=== PATIENT | male | born 1960 | race Caucasian/White ===

== ENCOUNTER 2018-10-02 15:45 | Inpatient (IN) | payer BC ==
[~2018-10-02] VITALS: Ht 182.9 cm; Wt 102.1 kg
[2018-10-02 15:46] VITALS: Ht 182.9 cm; Wt 102.1 kg
--- NOTE | 2018-10-02 16:00 | NUR ---
RECTAL EXAM DONE BY DR VILLARREAL
--- NOTE | 2018-10-02 16:33 | NUR ---
AWAKE ALERT MOVED FROM HALLWAY TO BED 15 STATED 7 HOURS AGO INSERTED A GLASS BALL IN HIS ANUS,TRIED TO GET IT OUT COULDNOT IN SEVERE PAIN
--- NOTE | 2018-10-02 16:36 | NUR ---
MEDICATED ORDERD FOR ANAL PAIN,
[2018-10-02 16:52] LABS: microscopic required? YES; urine erythrocyte TRACE (NEGATIVE)
[2018-10-02 16:57] LABS: BASOPHIL % 0.2 % (0-2); PLATELET COUNT 243 x10^3mcL (130-400); RED CELL DISTRIBUTION WIDTH 13.5 % (11.5-14.5)
[2018-10-02 16:58] LABS: CALCIUM 8.4 mg/dL (8.5-10.1); CARBON DIOXIDE 23.3 mmol/L (21-32); CHLORIDE SERUM 102 mmol/L (98-107); CREATININE SERUM 1.1 mg/dL (0.7-1.3); GFR1 > 60 mL/min; GLUCOSE SERUM 141 mg/dL (74-106); LIPASE 109 IU/L (73-393); POTASSIUM SERUM 3.4 mmol/L (3.5-5.1); SODIUM SERUM 139 mmol/L (136-145)
--- NOTE | 2018-10-02 17:16 | NUR ---
STATES FEELS BETTR, BUT STILL IN PAIN, RESTLESS IN GURNEY
--- NOTE | 2018-10-02 17:53 | NUR ---
RESTLESS IN BED AND C/O SEVERE ANAL PAIN,MEDICATED WITH FENTANYL
[2018-10-02 18:13] LABS: AMPHETAMINE QUAL UR POSITIVE (See below)
[2018-10-02] MEDS ORDERED: LOSARTAN POTAS100 M1 PO (18:30)
[2018-10-02] MEDS ORDERED: HCTZ (18:30)
--- NOTE | 2018-10-02 19:00 | NUR ---
[facility] ACCOM[facility]AN[facility] BY TRANSPORTER. PT A/A/O X 4, ANXIOUS AND RESTLESS BUT COOPERATIVE TO CARE AT THIS TIME. PT AMBULATORY, ABLE TO WALK WITHOUT GAIT OR BALANCE IMPAIRMENT FROM ERNEY TO BED. HR (101) AND RR (22) ELEVATED 2/2 CONSTANT PULLING PAIN 9/10 IN HIS RECTUM 2/2 FOREIGN OBJECT LODGED DEEP INSIDE (GLASS BALL, PER PT, W/C HE USED TO ANALLY PLEASE HIMSELF); UNABLE TO DIGITALLY INSPECT OBJECT; DENIES CHEST PAIN OR DISCOMFORT, NO ACUTE RESPIRATORY DISTRESS NOTED. ABD SOFT, ROUND, TENDERNESS UPON PALPATION AND TYMPANY UPON PERCUSSION X 4 QUADS, LAST BM 10/01/18, HARD. IV SITE RFA 20G, CDI. ORIENTED PT TO ROOM, BED CONTROLS, CALL LIGHT SYSTEM. SIDE RAILS UP X 2, BED IN LOW POSITION. WILL ENDORSE TO YANNI ULLOA.
--- NOTE | 2018-10-02 19:13 | NUR ---
REPORT GIVEN TO ISABELLA LIAO,
--- NOTE | 2018-10-02 20:43 | NUR ---
C/O RECTAL PAIN AT SCALE OF 8/10 PER PATIENT, MEDICATED WITH MORPHINE 2MG IVP PRESCRIBED. WILL CONTINUE TO MONITOR.
[2018-10-02 20:55] VITALS: BP 145/88
[2018-10-02 21:02] VITALS: BP 191/98
--- NOTE | 2018-10-02 23:28 | NUR ---
PATIENT SCREAMING C/O RECTAL PAIN AT SCALE OF 10/10 PER PATIENT. MORPHINE 4MG IVP GIVEN PRESCRIBED. WILL CONTINUE TO MONITOR.
[2018-10-03 00:33] VITALS: BP 159/84
--- NOTE | 2018-10-03 04:15 | NUR ---
PATIENT STILL AWAKE C/O RECTAL PAIN 10/10 PER PATIENT. MORPHINE 4MG IVP GIVEN PRESCRIBED. WILL CONTINUE TO MONITOR.
--- NOTE | 2018-10-03 05:20 | NUR ---
AWAKE MOST OF THE TIME C/O RECTAL PAIN, MEDICATED X3 WITH MORPHINE 4MG IVP PRESCRIBED. KEPT ON NPO. ALL NEEDS ATTENDED.
[2018-10-03 06:01] VITALS: BP 177/91
--- NOTE | 2018-10-03 07:00 | NUR ---
RECEIVED BEDSIDE REPORT FROM TECHNICAL TRAINING INSTRUCTOR NURSE AT THIS TIME. PATIENT RESTING IN BED TURNING SIDE TO SIDE. BREATHING SLIGHTLY ELEVATED, BUT NO RESPIRATORY DISTRESS NOTED. PATIENT DENIES CHEST PAIN AT THIS TIME. SKIN IS INTACT. PATIENT C/O RECTAL PAIN DUE TO GLASS BALL HE SELF PLACED IN RECTUM. WILL MEDICATE INDICATED FOR COMFORT. IV PATENT AND INTACT AND SALINE LOCKED. ALL QUESTIONS AND CONCERNS ADDRESSED. ALL NEEDS ATTENDED TO. WILL CONTINUE TO MONITOR
[2018-10-03 08:49] LABS: CALCIUM 8.9 mg/dL (8.5-10.1); CARBON DIOXIDE 22.6 mmol/L (21-32); CHLORIDE SERUM 102 mmol/L (98-107); CREATININE SERUM 1.1 mg/dL (0.7-1.3); GFR1 > 60 mL/min; GLUCOSE SERUM 147 mg/dL (74-106); POTASSIUM SERUM 3.3 mmol/L (3.5-5.1); SODIUM SERUM 138 mmol/L (136-145)
--- NOTE | 2018-10-03 08:53 | NUR ---
PATIENT DOWN FOR PROCEDURE AT THIS TIME
[2018-10-03 09:17] LABS: PLATELET COUNT 221 x10^3mcL (130-400); RED CELL DISTRIBUTION WIDTH 13.7 % (11.5-14.5)
[2018-10-03 09:26] VITALS: BP 163/80
--- NOTE | 2018-10-03 10:15 | NUR ---
REPORTS TO DR ARRIAGA REGARDING PATIENT WBC OF 22.9 AND POTASSIUM OF 3.3 AT THIS TIME. WILL PROCEED ORDERED. WILL CONTINUE TO MONITOR
[2018-10-03 12:13] LABS: BAND NEUTROPHIL 2 % (0-10); BASOPHIL 0 % (0-2); MONOCYTE 2 % (0-7); SEGMENTED NEUTROPHILS 91 % (37-75)
[2018-10-03 12:14] LABS: rbc morphology (normal/abnorm) ABNORMAL (NORMAL)
[2018-10-03 12:15] LABS: PLATELET MORPHOLOGY PLATELETS DECREASED
--- NOTE | 2018-10-03 12:48 | NUR ---
RECEIVED PATIENT BACK FROM PROCEDURE AT THIS TIME. PATIENT ABLE TO AMBULATE FROM [facility] TO BED. BLOOD NOTED TO [facility] BED AND PATIENT GOWN. PATIENT GIVEN CLEAN GOWN AND CLEANED UP. PAD AND MESH PANTIES IN PLACE. VITAL SIGNS STABLE. PATIENT SITTING UP IN BED EATING LUNCH AT THIS TIME. TOLERATING DIET WELL. ALL QUESTIONS AND CONCERNS ADDRESSED. ALL NEEDS ATTENDED TO. WILL CONTINUE TO MONITOR
[2018-10-03 12:52] VITALS: BP 116/76
[2018-10-03 13:25] VITALS: BP 116/76
--- NOTE | 2018-10-03 15:11 | NUR ---
SPOKE TO DR PARNELL REGARDING PATIENT WBC OF 22.9. DR PARNELL INFORMED PATIENT GOT ONE DOSE OF ANTIBIOTIC IN OR. PER DR PARNELL, OKAY TO DISCHARGE PATIENT AT THIS TIME. ALL QUESTIONS AND CONCERNS ADDRESSED. ALL NEEDS ATTENDED TO.
--- NOTE | 2018-10-03 15:28 | NUR ---
PATIENT STABLE TO BE DISCHARGED TO HOME. DISCHARGE INSTRUCTIONS GIVEN WELL EDUCATION. INSTRUCTED PATIENT ABOUT FOLLOW UP APPOINTMENT WITH PCP. PATIENT VERBALIZED UNDERSTANDING. IV REMOVED WITH CATH INTACT. ID BANDS REMOVED. ALL BELONGINGS WITH PATIENT. ALL QUESTIONS AND CONCERNS ADDRESSED. ALL NEEDS ATTENDED TO. AWAITING TO FIRE SERVICES PLUMBER PATIENT. TO BE ESCORTED DOWN TO LOBBY
--- NOTE | 2018-10-03 15:55 | NUR ---
PATIENT ESCORTED DOWN TO LOBBY BY RN AT THIS TIME. AT SIDE. ALL PERSONAL BELONGINGS WITH PATIENT. ALL NEEDS ATTENDED TO.
== END 2018-10-03 15:55 | disposition home or self-care (01) | DRG 394 ==
LOC: ED 15:45 → MU 18:18
PROVIDERS: Emergency Medicine; Family Medicine; Surgery; ADMIT Internal Medicine
PROC: 0DCP7ZZ Extirpation of Matter from Rectum, Via Natural or Artificial Opening (ICD-10-PCS; principal; 2018-10-03 10:00)
DX: T18.5XXA Foreign body in anus and rectum, initial encounter (principal); F15.20 Other stimulant dependence, uncomplicated; X58.XXXA Exposure to other specified factors, initial encounter; I10 Essential (primary) hypertension; E87.6 Hypokalemia; Y93.89 Activity, other specified; Y92.89 Other specified places as the place of occurrence of the external cause; Y99.8 Other external cause status; R00.0 Tachycardia, unspecified; D72.829 Elevated white blood cell count, unspecified; Z71.51 Drug abuse counseling and surveillance of drug abuser
CPT/HCPCS: J0690; J2270; J3010; J3490; Q0092

== ENCOUNTER 2018-10-11 20:49 | Inpatient (IN) | payer BC ==
[~2018-10-11] VITALS: Ht 182.9 cm; Wt 101.2 kg
[~2018-10-11 20:49] MED LIST: HCTZ; LOSARTAN POTAS100 M1 PO
[2018-10-11 20:51] VITALS: Ht 182.9 cm; Wt 101.2 kg
[2018-10-11 21:33] LABS: BASOPHIL % 0.3 % (0-2); PLATELET COUNT 275 x10^3mcL (130-400); RED CELL DISTRIBUTION WIDTH 13.6 % (11.5-14.5)
[2018-10-11 21:47] LABS: CALCIUM 8.3 mg/dL (8.5-10.1); CARBON DIOXIDE 24.3 mmol/L (21-32); CHLORIDE SERUM 103 mmol/L (98-107); CREATININE SERUM 1.2 mg/dL (0.7-1.3); GFR1 > 60 mL/min; GLUCOSE SERUM 183 mg/dL (74-106); POTASSIUM SERUM 3.7 mmol/L (3.5-5.1); SODIUM SERUM 136 mmol/L (136-145)
[2018-10-11 21:52] LABS: ALKALINE PHOSPHATASE 66 U/L (46-116); ALT/SGPT 25 U/L (16-63); AST/SGOT 20 U/L (15-37); BILIRUBIN TOTAL 0.31 mg/dL (0.20-1.00)
[2018-10-11 21:55] LABS: ALBUMIN 2.6 g/dL (3.4-5.0); TOTAL PROTEIN, SERUM 5.6 g/dL (6.4-8.2)
[2018-10-12 00:34] LABS: MAGNESIUM 1.9 mg/dL (1.8-2.4); PHOSPHOROUS 3.9 mg/dL (2.5-4.9)
[2018-10-12 01:26] VITALS: BP 106/63
[2018-10-12] MEDS ORDERED: FENOFIBRATE160 M1 PO (01:58)
[2018-10-12] MEDS ORDERED: NOR5 PO (01:58)
[2018-10-12 05:15] VITALS: BP 127/72
[2018-10-12 06:18] LABS: BASOPHIL % 0.3 % (0-2); PLATELET COUNT 264 x10^3mcL (130-400); RED CELL DISTRIBUTION WIDTH 13.6 % (11.5-14.5)
[2018-10-12 06:25] LABS: CALCIUM 8.1 mg/dL (8.5-10.1); CARBON DIOXIDE 26.7 mmol/L (21-32); CHLORIDE SERUM 104 mmol/L (98-107); GFR1 > 60 mL/min; GLUCOSE SERUM 127 mg/dL (74-106); SODIUM SERUM 139 mmol/L (136-145)
[2018-10-12 09:06] VITALS: BP 105/59
[2018-10-12 09:50] LABS: CHOLESTEROL/HDL RATIO 5.2
== END 2018-10-12 14:00 | disposition left against medical advice (07) | DRG 377 ==
LOC: ED 20:49 → DU 23:57
PROVIDERS: Emergency Medicine; ADMIT Internal Medicine
DX: K62.5 Hemorrhage of anus and rectum (principal); N17.0 Acute kidney failure with tubular necrosis; E43 Unspecified severe protein-calorie malnutrition; D62 Acute posthemorrhagic anemia; I10 Essential (primary) hypertension; Z53.21 Procedure and treatment not carried out due to patient leaving prior to being seen by health care provider; E78.5 Hyperlipidemia, unspecified
CPT/HCPCS: J7030; Q0092